=== PATIENT | female | born 1970 | race Caucasian/White ===

== ENCOUNTER 2017-04-07 18:03 | Emergency (ER) | payer OTHER ==
[~2017-04-07] VITALS: Ht 162.6 cm; Wt 47.4 kg
[2017-04-07 18:04] VITALS: BP 173/101
[2017-04-07] MEDS ORDERED: LIDOCAINE 1%, 20ML INFIL ONE (18:30)
[2017-04-07] MEDS ORDERED: DIPH,PERTUSS(ACELL),TET VAC/PF 0.5 ML IM-VACC ONE (18:30)
== END 2017-04-07 19:21 | disposition left against medical advice (07) ==
LOC: ED 18:43
DX: S40.271A Other superficial bite of right shoulder, initial encounter (principal); W54.0XXA Bitten by dog, initial encounter; Y93.89 Activity, other specified; Y92.410 Unspecified street and highway as the place of occurrence of the external cause; Y99.8 Other external cause status
CPT/HCPCS: 99281

== ENCOUNTER 2017-04-08 13:22 | Emergency (ER) | payer SELFPAY ==
[~2017-04-08] VITALS: Ht 162.6 cm; Wt 49.6 kg
[2017-04-08 13:27] VITALS: BP 162/92
[2017-04-08] MEDS ORDERED: DIPH,PERTUSS(ACELL),TET VAC/PF 0.5 ML IM-VACC ONE ×2 (13:47→14:00)
[2017-04-08] MEDS ORDERED: LIDOCAINE 1%, 20ML SQ ONE (14:00)
[2017-04-08] MEDS ORDERED: AMOXICILLIN/CLAV 875-125MG TABLET PO ONE (14:00)
[2017-04-08] MEDS ORDERED: BACITRACIN ZINC OINT 500U/GM, 0.9 GM ONE (14:21)
== END 2017-04-08 14:37 | disposition home or self-care (01) ==
LOC: ED 14:15
DX: S41.051A Open bite of right shoulder, initial encounter (principal); W54.0XXA Bitten by dog, initial encounter; Y93.89 Activity, other specified; Y99.8 Other external cause status; Y92.410 Unspecified street and highway as the place of occurrence of the external cause
CPT/HCPCS: 12004; 90471; 90715

== ENCOUNTER 2017-04-30 07:40 | Emergency (ER) | payer SELFPAY ==
[~2017-04-30] VITALS: Ht 162.6 cm; Wt 49.2 kg
[2017-04-30 07:42] VITALS: BP 160/92
== END 2017-04-30 08:16 | disposition home or self-care (01) ==
LOC: ED 08:10
DX: Z48.02 Encounter for removal of sutures (principal); F17.210 Nicotine dependence, cigarettes, uncomplicated
CPT/HCPCS: 99281

== ENCOUNTER 2019-11-21 11:39 | Emergency (ER) | payer MEDICAID ==
[~2019-11-21] VITALS: Ht 160 cm; Wt 65.0 kg
[2019-11-21] MEDS ORDERED: ZIPRASIDONE 20 MG INJ IM ONE (12:00)
[2019-11-21] MEDS ORDERED: PLEASE ENTER ALLERGIES MC SCH (12:00)
[2019-11-21] MEDS ORDERED: PLEASE ENTER HEIGHT AND WEIGHT MC SCH (12:00)
[2019-11-21] MEDS ORDERED: HALOPERIDOL 5 MG/ML ONE (12:05)
[2019-11-21] MEDS ORDERED: HALOPERIDOL 5 MG/ML IM STA (12:38)
[2019-11-21 12:49] LABS: BASOPHILS # (AUTO) 0.03 x10^3/uL (0-0.1); BASOPHILS % (AUTO) 0 % (0-1); EOSINOPHILS # (AUTO) 0.05 x10^3/uL (0-0.4); EOSINOPHILS % (AUTO) 1 % (1-7); LYMPHOCYTES # (AUTO) 0.86 x10^3/uL (1-3.4); LYMPHOCYTES % (AUTO) 13 % (22-44); MD NO; MEAN CORPUSCULAR HEMOGLOBIN 31.5 pg (27.0-34.8); MEAN CORPUSCULAR HGB CONC 34.2 g/dL (32.4-35.8); MEAN CORPUSCULAR VOLUME 92.3 fL (80-100); MEAN PLATELET VOLUME 8.3 fL (7.4-10.4); MONOCYTES # (AUTO) 0.73 x10^3/uL (0.2-0.8); MONOCYTES % (AUTO) 11 % (2-9); NEUTROPHILS # (AUTO) 5.08 x10^3/uL (1.8-6.8); NEUTROPHILS % (AUTO) 75 % (42-75); PLATELET COUNT 462 x10^3/uL (130-400); RED BLOOD COUNT 3.59 x10^6/uL (3.82-5.3); RED CELL DISTRIBUTION WIDTH 15.3 % (9.6-15.2)
[2019-11-21] MEDS ORDERED: HALOPERIDOL 5 MG/ML IM ONE ×2 (13:00→14:00)
[2019-11-21] MEDS ORDERED: HALOPERIDOL 5 MG/ML IM PRN (13:00)
[2019-11-21 13:01] LABS: ALBUMIN 3.9 g/dL (3.4-5.0); ANION GAP 9 mmol/L (5-15); CALCIUM 8.9 mg/dL (8.5-10.1); CHLORIDE 104 mmol/L (98-107); CREATININE 1.33 mg/dL (0.55-1.02)
[2019-11-21 13:05] LABS: ALANINE AMINOTRANSFERASE 17 U/L (12-78); ALKALINE PHOSPHATASE 133 U/L (45-117); BILIRUBIN,TOTAL 0.5 mg/dL (0.2-1.0); TOTAL PROTEIN 8.8 g/dL (6.4-8.2)
[2019-11-21 13:09] LABS: SALICYLATE LEVEL < 1.7 mg/dL (2.8-20.0)
[2019-11-21 13:25] LABS: FREE T4 (FREE THYROXINE) 1.39 ng/dL (0.76-1.46)
--- NOTE | 2019-11-21 13:27 | NUR ---
PT BIB EMS FOR STANDING IN TRAFFIC, ALTERED MENTAL STATUS, YELLING. PT IS DIRTY COVERED IN FECES AND MALODOROUS. PT IS YELLING/RAMBLING IN WELSH AND DANISH, NOT COOPERATING, ERRATIC W STAFF. NO INJURIES SEEN. PT BROUGHT INTO SHOWER TO BE CLEANED WITH STAFF. SECURITY CALLED TO ASSIST. PT YELLING AND COMBATIVE WITH STAFF. PT RETURNED TO ROOM, MEDICATED PER ORDERS. VSS. MONITORS APPLIED
--- NOTE | 2019-11-21 13:43 | NUR ---
PT SLEEPING. SITTER PRESENT. VSS
[2019-11-21] MEDS ORDERED: POTASSIUM CHLORIDE 20 MEQ TAB.ER.PRT PO ONE (14:00)
--- NOTE | 2019-11-21 14:30 | NUR ---
PT SLEEPING VSS. SITTER PRESENT.
--- NOTE | 2019-11-21 15:53 | NUR ---
PT SLEEPING. VSS SITTER PRESENT
--- NOTE | 2019-11-21 16:30 | NUR ---
PT SLEEPING, VSS. SITTER PRESENT
--- NOTE | 2019-11-21 18:34 | NUR ---
PT SLEEPING, VSS. SITTER PRESENT.
--- NOTE | 2019-11-21 18:49 | NUR ---
RECEIVED REPORT FROM KATIANA LAGUNA. PATIENT SLEEPING , RESPIRATION UNLABORED. SITTER AT THE DOOR.
--- NOTE | 2019-11-21 20:25 | NUR ---
NO CHANGES. PATIENT STILL SLEEPING, VSS. SITTER AT THE DOOR.
--- NOTE | 2019-11-21 21:42 | NUR ---
PATIENT SLEEPING, RESPIRATION UNLABORED. WILL CONTINUE TO MONITOR.
--- NOTE | 2019-11-21 23:13 | NUR ---
PATIENT WOKE UP AFTER TAKING BLOOD PRESSURE AND WENT BACK TO SLEEP.
--- NOTE | 2019-11-22 01:00 | NUR ---
no changes. VSS. will continue to monitor.
--- NOTE | 2019-11-22 03:00 | NUR ---
patient still sleeping, respiration unlabored. sitter at the door for safety.
--- NOTE | 2019-11-22 05:00 | NUR ---
patient awake and oriented. able to walk to bathroom with limp due to right foot swelling. urine sample obtained and sent to lab.
--- NOTE | 2019-11-22 05:05 | NUR ---
correction: left foot swelling.
[2019-11-22 05:29] LABS: MICROSCOPIC AUTO
[2019-11-22 05:32] LABS: CULTURE INDICATED? NO
[2019-11-22 05:37] LABS: AMPHETAMINE SCREEN, URINE Positive (Negative); BARBITURATE SCREEN, URINE Negative (Negative); BENZODIAZEPINE SCREEN, URINE Negative (Negative); CANNABINOID SCREEN, URINE Negative (Negative); COCAINE SCREEN, URINE Negative (Negative); METHADONE SCREEN, URINE Negative (Negative); OPIATE SCREEN, URINE Negative (Negative)
--- NOTE | 2019-11-22 06:32 | NUR ---
sitter at the door. patient sleeping. VSS
[2019-11-22] MEDS ORDERED: POTASSIUM CHLORIDE 20 MEQ TAB.ER.PRT ONE ×2 (07:29→21:26)
--- NOTE | 2019-11-22 07:37 | NUR ---
PT RESTING ON HOSPITAL BED, VSS AT THIS TIME. AWAITING MEAL TRAY WILL MEDICATE PT WITH PO POTASSIUM ORDERED, DISCUSSED WITH ANITA. PT ON MONITOR, BP, CONT PULSE OX AT THIS TIME
[2019-11-22 08:00] LABS: ANION GAP 8 mmol/L (5-15); CALCIUM 8.4 mg/dL (8.5-10.1); CHLORIDE 105 mmol/L (98-107); CREATININE 0.65 mg/dL (0.55-1.02)
[2019-11-22] MEDS ORDERED: POTASSIUM CHLORIDE 20 MEQ PACKET ONE (08:49)
--- NOTE | 2019-11-22 08:51 | NUR ---
PT GIVEN MEAL TRAY, PT ATE APROX 30% OF TRAY, ATTEMPTED TO MEDICATE PT WITH POTASSIUM, PT UNABLE TO SWALLOW PILLS, PT IS ALSO REFUSING POWDER FORM, ERMD UPDATED
--- NOTE | 2019-11-22 10:29 | NUR ---
PT REMAINS RESTING ON HOSPITAL BED, PT CALM AT THIS TIME. SITTER REMAINS IN PLACE. NO NEEDS AT THIS TIME
--- NOTE | 2019-11-22 13:39 | NUR ---
PACKET FAXED TO [facility]
--- NOTE | 2019-11-22 14:22 | NUR ---
PT CONTINUES TO REST ON HOSPITAL BED, SI PRECAUTIONS REMAIN IN PLACE. NO NEEDS AT THIS TIME
--- NOTE | 2019-11-22 15:14 | NUR ---
BETTE YEBOAH ATTEMPTING TO COMPLETE ASSESSMENT ON PT, PT NOT PARTICIPATING IN ASSESSMENT AT THIS TIME, NUTRITION MANAGER TO ASSESS AT LATER TIME
--- NOTE | 2019-11-22 17:39 | NUR ---
WATER PROVIDED, MEAL TRAY ORDERED. SI PRECAUTIONS REMAIN IN PLACE
--- NOTE | 2019-11-22 18:57 | NUR ---
ASSUMED CARE OF PATIENT AT THIS TIME.
--- NOTE | 2019-11-22 19:18 | NUR ---
INTRODUCED SELF TO PATIENT. SHE IS CALM AND COOPERATIVE AT THIS TIME. DENIES ANY SUICIDAL IDEATION. WATCHING TV. SITTER AT BEDSIDE.
[2019-11-22 19:19] VITALS: BP 141/90
--- NOTE | 2019-11-22 19:33 | NUR ---
SPOKE WITH EITAN SAAB WHO IS THE TELETYPEWRITER INSTALLER ON THE [facility] FLOOR. SHE REPORTS THAT THEY HAVE BEEN UNABLE TO EVALUATE PT SHE WAS NOT COOPERATIVE WITH SOLAR INSTALLATION MANAGER. DISCUSSED WITH EITAN THAT PATIENT IS COOPERATIVE AT THIS TIME AND I DO BELIEVE SHE WOULD BE APPROPRIATE FOR AN ASSESSMENT. EITAN WILL BE COMING DOWN AROUND 2029.
[2019-11-22] MEDS ORDERED: POTASSIUM CHLORIDE 20 MEQ TAB.ER.PRT PO SCH (21:00)
--- NOTE | 2019-11-22 21:52 | NUR ---
PT REFUSED POTASSIUM AT THIS TIME. PT. SAYS "NO " AND THAT SHE WANTS TO GO TO SLEEP BECAUSE SHE IS TIRED. SPOKE WITH ED RN ON BHU. PATIENT WAS ACCEPTED TO THEIR FLOOR. REPORT GIVEN AND PATIENT CAN GO UPSTAIRS AT 2230
--- NOTE | 2019-11-22 22:13 | NUR ---
REPORT GIVEN TO ED RN ON BHU. PATIENT TO GO TO THE FLOOR AT [id number]
== END 2019-11-22 22:29 ==
LOC: MERGE 11-22 07:28 → ED 11-22 07:28
DX: F44.9 Dissociative and conversion disorder, unspecified (principal); R44.3 Hallucinations, unspecified
CPT/HCPCS: 36415; 80048; 80053; 80307; 81001; 83735; 84439; 84443; 84703; 85025; 96372; 99285; J1630

== ENCOUNTER 2019-12-18 00:21 | Emergency (ER) | payer MEDICAID ==
[~2019-12-18] VITALS: Ht 162.6 cm; Wt 50.0 kg
[~2019-12-18 00:21] MED LIST: MULT1TAB60 PO; OLAN10TA7 PO
--- NOTE | 2019-12-18 00:44 | NUR ---
BREAK RN FOR PRIMARY RN KAILEE. PT RESTING IN POSITION OF COMFORT ON ED GURNEY. ROLO DALY AT BEDSIDE FOR EVALUATION, DISCUSSING POC WITH PT, PT VERBALIZED UNDERSTANDING. NAD NOTED. VSS. SITTER AT DOOR FOR CONTINUOUS SAFETY OBSERVATION, REMAINS IN MONITORED ROOM WITH GARAGE DOORS DOWN AND ALL BELONGINGS LOCKED IN CABINET FOR SAFETY. SIDE RAILS UP. FALL PRECAUTIONS IN PLACE. DENIES NEED TO USE RESTROOM, AWARE UA SAMPLE NEEDED.
--- NOTE | 2019-12-18 00:50 | NUR ---
LAB AT BEDSIDE, ASSISTED WITH LAB DRAW.
[2019-12-18 01:02] LABS: BASOPHILS # (AUTO) 0.02 x10^3/uL (0-0.1); BASOPHILS % (AUTO) 0 % (0-1); EOSINOPHILS # (AUTO) 0.09 x10^3/uL (0-0.4); EOSINOPHILS % (AUTO) 2 % (1-7); LYMPHOCYTES # (AUTO) 0.94 x10^3/uL (1-3.4); LYMPHOCYTES % (AUTO) 17 % (22-44); MD NO; MEAN CORPUSCULAR HEMOGLOBIN 31.8 pg (27.0-34.8); MEAN CORPUSCULAR HGB CONC 33.7 g/dL (32.4-35.8); MEAN CORPUSCULAR VOLUME 94.3 fL (80-100); MEAN PLATELET VOLUME 7.4 fL (7.4-10.4); MONOCYTES # (AUTO) 0.54 x10^3/uL (0.2-0.8); MONOCYTES % (AUTO) 10 % (2-9); NEUTROPHILS # (AUTO) 4.13 x10^3/uL (1.8-6.8); NEUTROPHILS % (AUTO) 72 % (42-75); PLATELET COUNT 428 x10^3/uL (130-400); RED BLOOD COUNT 3.68 x10^6/uL (3.82-5.3); RED CELL DISTRIBUTION WIDTH 14.8 % (9.6-15.2)
[2019-12-18 01:13] LABS: ANION GAP 10 mmol/L (5-15); CALCIUM 8.9 mg/dL (8.5-10.1); CHLORIDE 99 mmol/L (98-107); CREATININE 0.84 mg/dL (0.55-1.02)
[2019-12-18] MEDS ORDERED: LORazepam 2 MG/ML, 1ML ONE (01:23)
[2019-12-18] MEDS ORDERED: ZIPRASIDONE 20 MG INJ IM ONE ×2 (01:23→01:30)
--- NOTE | 2019-12-18 01:25 | NUR ---
BEDSIDE REPORT AND CARE BACK TO PRIMARY RN MARCELO. PT GETTING AGGITATED IN ROOM AND PEED SMALL AMOUNT ON THE FLOOR AND GOWN, ASKED PT IF SHE WOULD LIKE TO USE RESTROOM, SHE STATES YES AND THEN PROCEEDED TO BOLT DOWN THE HALLWAY, SHOUTING "[place], IN MY PANTS." PT NOT WEARING PANTS. THIS RN AND KAILEE ATTEMPTED TO REDIRECT PT BACK TO ROOM. SECURITY CALLED. PT CONTINUES TO SHOUT ABOUT THINGS CRAWLING ON HER PANTS. ROLO DALY UPDATED ON POC AND ORDERS RECEIVED FOR MEDICATION. ROLO DALY TO PT'S SIDE TO ASSIST IN REDIRECTION TO ROOM. PT BACK IN ROOM, KAILEE RN TO MEDICATE PER EMAR. PER ROLO DALY AND PRIMARY RN, DECISION MADE WITH SECURITY TO HOLD RESTRAINTS AT THIS TIME. PT AGREES TO COOPERATE AND TAKE MEDICATION TO HELP RELAX HER.
[2019-12-18 01:26] LABS: SALICYLATE LEVEL < 1.7 mg/dL (2.8-20.0)
[2019-12-18] MEDS ORDERED: LORazepam 2 MG/ML, 1ML IM ONE (01:30)
--- NOTE | 2019-12-18 01:30 | NUR ---
PT MEDICATED PER Sep, RIGHTS VERIFIED. SECURITY AT BEDSIDE FOR ASSIST.
--- NOTE | 2019-12-18 01:45 | NUR ---
PT REFUSING TO STAY IN ROOM/ ON RGERMFASK. PT SPRINTED OUT OF ROOM PAST SITTER AND BEGAN TO SWIFTLY JUAN A SMALL CHILD. PT NOT AGREEABLE TO RETURN TO ROOM. PER DR HENDRICKS PT PLACED IN 4 PT RESTRAINTS FOR SAFETY OF PT AND THOSE IN ER.
--- NOTE | 2019-12-18 02:05 | NUR ---
PT BIT PULSE OX OFF WHILE SCREAMING GET THESE OFF OF ME THEY ARE GOING TO KILL ME
--- NOTE | 2019-12-18 02:10 | NUR ---
PT NOW DROWSY, MUNAN REMAINS IN RESTRAINTS FREQUENT CHECKS IN PLACE. SITTER IN VIEW OF PT.
--- NOTE | 2019-12-18 02:57 | NUR ---
PT STILL IN RESTRAINTS DUE TO AGGITATION. PT IS HOWEVER CALMING DOWN AND GRADUALLY BECOMING MORE DROWSY
--- NOTE | 2019-12-18 04:10 | NUR ---
PT NOW CALM AND RESTING ON GURNEY NADN. SECURITY CALLED TO ASSIST WITH RESTRAINT REMOVAL
--- NOTE | 2019-12-18 04:25 | NUR ---
BOTH LEGS NOW OUT OF RESTRAINTS
--- NOTE | 2019-12-18 05:00 | NUR ---
all restraints removed pt resting comfortably
--- NOTE | 2019-12-18 06:28 | NUR ---
pt incon of urine linens changed
--- NOTE | 2019-12-18 06:29 | NUR ---
sitter in [place] for safety
--- NOTE | 2019-12-18 06:54 | NUR ---
Report from Fernanda SAAB. Pt resting in bed with eyes closed, resp even and unlabored, NADN. Room remains secured, sitter within eyesight of pt, all safety measures observed.
--- NOTE | 2019-12-18 07:34 | NUR ---
Meal tray ordered for pt. Pt continues resting in bed with eyes closed, resp even and unlabored, MUNAN.
--- NOTE | 2019-12-18 08:26 | NUR ---
Meal tray delivered to pt with SI precautions observed. Pt continues resting in bed with eyes closed, resp even and unlabored, NADN.
--- NOTE | 2019-12-18 09:37 | NUR ---
Pt ambulatory to bathroom and back to bed without difficulty. Urine sample collected, labeled at bedside, sent to lab. Pt able to position self for comfort in bed, NADN. Room remains secured, sitter within eyesight of pt, all safety measures observed.
[2019-12-18 09:59] LABS: MICROSCOPIC NOT IND
--- NOTE | 2019-12-18 10:09 | NUR ---
Pt provided with warm blanket per request, denies other needs. Room remains secured, sitter within eyesight of pt, all safety measures observed.
[2019-12-18 10:10] LABS: AMPHETAMINE SCREEN, URINE Positive (Negative); BARBITURATE SCREEN, URINE Negative (Negative); BENZODIAZEPINE SCREEN, URINE Negative (Negative); CANNABINOID SCREEN, URINE Negative (Negative); COCAINE SCREEN, URINE Negative (Negative); METHADONE SCREEN, URINE Negative (Negative); OPIATE SCREEN, URINE Negative (Negative)
--- NOTE | 2019-12-18 11:11 | NUR ---
Pt resting in bed with eyes closed, resp even and unlabored, NADN. Room remains secured, sitter within eyesight of pt, all safety measures observed.
--- NOTE | 2019-12-18 11:31 | NUR ---
Meal tray ordered for pt.
--- NOTE | 2019-12-18 12:15 | NUR ---
Meal tray delivered to pt with SI precautions observed.
[2019-12-18 13:01] VITALS: BP 122/67
--- NOTE | 2019-12-18 13:04 | NUR ---
RECEIVED REPORT FROM KATIANA BONNER. PT RESTING IN BED. ELIER. SITTER AT BEDSIDE. ROOM REMAINS SECURE. PT TO BE TRANSPORTED TO [facility].
--- NOTE | 2019-12-18 13:11 | NUR ---
Report called to Catrachita SAAB at [facility]. Floor ready for pt transport.
== END 2019-12-18 13:27 ==
LOC: ED 09:02
DX: R45.851 Suicidal ideations (principal); F23 Brief psychotic disorder
CPT/HCPCS: 36415; 80048; 80307; 81003; 82040; 85025; 96372; 99285; J2060; J3486

== ENCOUNTER 2019-12-18 11:52 | Inpatient (IN) | payer MEDICAID ==
[~2019-12-18] VITALS: Ht 154.9 cm; Wt 49.8 kg
[2019-12-18] MEDS ORDERED: BISACODYL 10 MG SUPP PR PRN (13:00)
[2019-12-18] MEDS ORDERED: ACETAMINOPHEN 325 MG TABLET PO PRN (13:00)
[2019-12-18] MEDS ORDERED: DOCUSATE 100 MG CAPSULE PO PRN (13:00)
[2019-12-18] MEDS ORDERED: POLYETHYLENE GLYCOL 17 GM PACKET PO PRN (13:00)
[2019-12-18] MEDS ORDERED: ONDANSETRON ODT 4 MG PO PRN (13:00)
[2019-12-18 13:37] VITALS: BP 123/81
[2019-12-18] MEDS: PLEASE ENTER HEIGHT AND WEIGHT MC SCH ×2 (14:00→22:00)
[2019-12-18] MEDS ORDERED: OLANZAPINE 10 MG INJ IM ONE (15:30)
[2019-12-18] MEDS ORDERED: POTASSIUM CHLORIDE 20 MEQ TAB.ER.PRT PO ONE (15:30)
[2019-12-18 20:40] VITALS: BP 116/76
[2019-12-18] MEDS: OLANZAPINE 5 MG TABLET PO SCH (20:55)
[2019-12-19 06:29] LABS: FREE T4 (FREE THYROXINE) 1.37 ng/dL (0.76-1.46)
[2019-12-19 07:55] VITALS: BP 132/90
[2019-12-19] MEDS: OLANZAPINE 5 MG TABLET PO SCH ×2 (08:37→20:13)
[2019-12-19 20:00] VITALS: BP 138/92
[2019-12-20 07:17] VITALS: BP 135/91
[2019-12-20] MEDS: OLANZAPINE 5 MG TABLET PO SCH ×2 (08:44→20:13)
[2019-12-20 19:37] VITALS: BP 128/82
[2019-12-21 07:43] VITALS: BP 152/92
[2019-12-21 08:33] VITALS: BP 133/84
[2019-12-21] MEDS: OLANZAPINE 5 MG TABLET PO SCH ×2 (08:36→20:53)
[2019-12-21 20:13] VITALS: BP 133/88
[2019-12-22 08:20] VITALS: BP 148/95
[2019-12-22] MEDS: OLANZAPINE 5 MG TABLET PO SCH ×2 (08:52→20:56)
[2019-12-22] MEDS ORDERED: OLAN5TAB9 PO (14:58)
[2019-12-22 20:04] VITALS: BP 149/94
[2019-12-23 07:54] VITALS: BP 133/90
[2019-12-23] MEDS: OLANZAPINE 5 MG TABLET PO SCH (08:33)
== END 2019-12-23 09:05 | disposition home or self-care (01) | DRG 750 ==
LOC: 3E 13:26
PROVIDERS: ADMIT Psychiatry & Neurology Psychosomatic Medicine; ATTEND Psychiatry & Neurology Psychosomatic Medicine
DX: F25.0 Schizoaffective disorder, bipolar type (principal); F15.20 Other stimulant dependence, uncomplicated; D64.9 Anemia, unspecified; Z91.81 History of falling
CPT/HCPCS: 36415; 80048; 80307; 81003; 82040; 84439; 84443; 85025; 93005; 96372; 99285; J3486; J2060

== ENCOUNTER 2020-08-02 08:37 | Emergency (ER) | payer MEDICAID ==
[~2020-08-02] VITALS: Ht 162.6 cm; Wt 45.0 kg
[~2020-08-02 08:37] MED LIST changes: +MULT-449 PO; -MULT1TAB60 PO; +OLAN5TAB9 PO
[2020-08-02] MEDS ORDERED: ZIPRASIDONE 20 MG INJ IM ONE ×2 (09:00→09:01)
--- NOTE | 2020-08-02 10:27 | NUR ---
pt sleeping in bed. appears in no acute distress
--- NOTE | 2020-08-02 11:10 | NUR ---
pt sleeping in bed. vss.
--- NOTE | 2020-08-02 11:52 | NUR ---
pt sleeping in bed. aroused with stimulation but will not stay awake. offered food and water.
--- NOTE | 2020-08-02 12:55 | NUR ---
pt still very lethargic. vss.
--- NOTE | 2020-08-02 14:38 | NUR ---
BREAK RN: PT ATE 100% OF THE SANDWICH. PT OOB AND AMBULATED TO SHOWER ROOM. THIS RN ASSISSTED PT TO SHOWER. RTD TO ROOM W/O INCIDENT. COMPLETE OF SET OF CLEAN CLOTHES PROVIDED AND PT DRESSED WITH RN MIN ASSIST. 2 [employer] BLANKETS GIVEN FOR PT TO TAKE WITH HER. PT STATES [facility]. PT GIVEN BUS PASS. PT AMBULATORY WITH STEADY GAIT TO ED EXIT. NAD NOTED.
[2020-08-02 14:41] VITALS: BP 140/92
== END 2020-08-02 14:44 | disposition home or self-care (01) ==
LOC: ED 10:59
DX: F22 Delusional disorders (principal); B34.9 Viral infection, unspecified; Z20.822 Contact with and (suspected) exposure to COVID-19
CPT/HCPCS: 71045; 87635; 96372; 99284; J3486

== ENCOUNTER 2020-09-08 11:48 | Emergency (ER) | payer MEDICAID ==
[~2020-09-08] VITALS: Ht 162.6 cm; Wt 48.8 kg
--- NOTE | 2020-09-08 13:48 | NUR ---
RECYCLING OR RUBBISH COLLECTOR: PT TO ROOM FROM [facility], GAIT STEADY WITH CANE.
--- NOTE | 2020-09-08 14:03 | NUR ---
FIRST CONTACT. PT HAS MULTIPLE BLISTERS ON INNER THIGH.
--- NOTE | 2020-09-08 14:40 | NUR ---
PT UA SENT. TAVON AT BEDSIDE
[2020-09-08 14:43] LABS: MICROSCOPIC NOT IND
--- NOTE | 2020-09-08 15:51 | NUR ---
MEDICATION REQUESTED FROM PHARMACY.
[2020-09-08 16:01] VITALS: BP 148/93
--- NOTE | 2020-09-08 16:02 | NUR ---
REPORT FROM MICHAELA. PT IN BED.
--- NOTE | 2020-09-08 16:18 | NUR ---
Patient given discharge instructions and bactroban tube and they have confirmed that they understand the instructions, all questions answered. Clothes provided to patient. Patient stable and ambulatory with steady gait from ED to private vehicle with friend.
[2020-09-08] MEDS ORDERED: MUPIROCIN OINT 2%, 22GM TP SCH (18:00)
== END 2020-09-08 16:19 | disposition home or self-care (01) ==
LOC: ED 16:00
DX: R21 Rash and other nonspecific skin eruption (principal); M25.551 Pain in right hip
CPT/HCPCS: 81003; 99283

== ENCOUNTER 2020-12-10 03:47 | Emergency (ER) | payer MEDICAID ==
[~2020-12-10] VITALS: Ht 162.6 cm; Wt 48.0 kg
--- NOTE | 2020-12-10 05:59 | NUR ---
PATIENT AMBULATORY WITH STEADY GAIT AT THIS TIME. PROVIDED PATIENT WITH FRESH CLEAN CLOTHES AND SUPPLIES TO SHOWER. ESCORTED PATIENT TO SHOWER WILL APPLY MEDICINE AFTER PATIENT SHOWERS.
[2020-12-10] MEDS ORDERED: TRIAMCINOLONE CRM 0.5%, 15GM TP ONE (06:00)
[2020-12-10 07:53] VITALS: BP 104/86
--- NOTE | 2020-12-10 07:55 | NUR ---
ATTEMPTED TO INITIATE DISCHARGE INSTRUCTIONS AND EDUCATION WITH PT. PT BECAME VERBALLY ABUSIVE AND YELLING OBSENITIES IN PITCAIRN ISLANDER AND DANISH. PT TORE OFF HER BP CUFF AND PULSE OX AND WENT INTO THE HALLWAY STILL YELLING. PT THEN WENT OUT THE EXIT DOOR. PT LEFT BELONGING BAG WITH CLOTHING AND DICHARGE PACKET IN ED ROOM, BUT HAD GRABBED THE MEDICATED OINTMENT TUBE. BELONGINGS BAG PLACED WITH SECURITY AND LABELED 1 OF 1. STEM CUTTER WITNESS TO EVENT.
== END 2020-12-10 08:13 | disposition home or self-care (01) ==
LOC: ED 06:42
DX: L24.9 Irritant contact dermatitis, unspecified cause (principal); L03.116 Cellulitis of left lower limb; L03.115 Cellulitis of right lower limb; F17.200 Nicotine dependence, unspecified, uncomplicated
CPT/HCPCS: 99283

== ENCOUNTER 2021-02-11 08:34 | Emergency (ER) | payer MEDICAID ==
[~2021-02-11] VITALS: Ht 162.6 cm; Wt 46.0 kg
[~2021-02-11 08:34] MED LIST changes: +OLAN5TAB69 PO; -OLAN5TAB9 PO
[2021-02-11] MEDS ORDERED: SODIUM CHLORIDE 0.9% 1,000ML IVBOLUS ONE (10:00)
[2021-02-11] MEDS ORDERED: SODIUM CHLORIDE FLUSH 10ML SYR IVF ONE (10:00)
--- NOTE | 2021-02-11 10:42 | NUR ---
PIV EST FLUIDS INFUSING IV DOES NOT DRAW BACK DELAY IN LABS D/T MULT FAILED ATTEMPTS BY MEDIC STUDENT, PT C/O ABD PAIN DIFFUSE, NO N/V/D/OTHER COMPLAINTS, BARELY RESPONDS WHEN QUESTIONED, DENIES DRUGS/ETOH BUT HAS HX OF THIS. CALL [facility].
--- NOTE | 2021-02-11 11:11 | NUR ---
lab at [facility] to draw blood. as
[2021-02-11 11:18] LABS: MICROSCOPIC INDICATED
[2021-02-11 11:20] LABS: BASOPHILS % (AUTO) 1 % (0-1); EOSINOPHILS % (AUTO) 4 % (1-7); LYMPHOCYTES % (AUTO) 15 % (22-44); MEAN CORPUSCULAR HEMOGLOBIN 32.2 pg (27.0-34.8); MEAN CORPUSCULAR HGB CONC 34.5 g/dL (32.4-35.8); MEAN PLATELET VOLUME 7.9 fL (7.4-10.4); MONOCYTES % (AUTO) 11 % (2-9); NEUTROPHILS % (AUTO) 69 % (42-75); PLATELET COUNT 272 x10^3/uL (130-400); RED BLOOD COUNT 3.41 x10^6/uL (3.82-5.3); RED CELL DISTRIBUTION WIDTH 13.4 % (9.6-15.2)
[2021-02-11 11:28] LABS: ALANINE AMINOTRANSFERASE 21 U/L (12-78); ALBUMIN 3.2 g/dL (3.4-5.0); ANION GAP 6 mmol/L (5-15); CALCIUM 8.1 mg/dL (8.5-10.1); CHLORIDE 108 mmol/L (98-107); CREATININE 0.55 mg/dL (0.55-1.02)
[2021-02-11 11:29] LABS: ALKALINE PHOSPHATASE 116 U/L (45-117); BILIRUBIN,TOTAL 0.6 mg/dL (0.2-1.0); TOTAL PROTEIN 7.2 g/dL (6.4-8.2)
--- NOTE | 2021-02-11 11:46 | NUR ---
pt up for recheck. as
--- NOTE | 2021-02-11 12:45 | NUR ---
pt tbdc after fluids infused. as
--- NOTE | 2021-02-11 13:22 | NUR ---
pt asked to shower prior to being dc'd. given food, soap, toothbrush, clothes, socks. as
[2021-02-11 13:23] VITALS: BP 121/71
== END 2021-02-11 13:29 ==
LOC: ED 09:06
DX: R10.84 Generalized abdominal pain (principal); Z59.0 Homelessness; Z72.9 Problem related to lifestyle, unspecified; F17.200 Nicotine dependence, unspecified, uncomplicated
CPT/HCPCS: 36415; 80053; 81001; 85025; 96360; 99283; J7030

== ENCOUNTER 2021-04-10 01:46 | Emergency (ER) | payer MEDICAID ==
--- NOTE | 2021-04-10 01:51 | NUR ---
CALLED IN THE LOBBY, NO ANSWER
--- NOTE | 2021-04-10 02:14 | NUR ---
2ND CALL. NO ANSWER, NOT IN THE LOBBY
--- NOTE | 2021-04-10 02:30 | NUR ---
3RD CALL, NO ANSWER. NOT IN THE LOBBY
--- NOTE | 2021-04-10 02:31 | NUR ---
LEFT WITHOUT BEING SEEN.
== END 2021-04-10 02:33 | disposition left against medical advice (07) ==
LOC: ED 01:50
DX: Z53.21 Procedure and treatment not carried out due to patient leaving prior to being seen by health care provider (principal)

== ENCOUNTER 2021-04-12 20:57 | Emergency (ER) | payer MEDICAID ==
[~2021-04-12] VITALS: Ht 152.4 cm; Wt 48.5 kg
[2021-04-12 21:02] VITALS: BP 141/93
== END 2021-04-12 22:33 | disposition home or self-care (01) ==
LOC: ED 21:28
DX: K29.00 Acute gastritis without bleeding (principal); R10.13 Epigastric pain; F17.200 Nicotine dependence, unspecified, uncomplicated